=== PATIENT | female | born 1945 ===

== ENCOUNTER 2020-07-25 17:54 | Emergency (ER) | payer OTHER ==
[~2020-07-25] VITALS: Ht 170.2 cm; Wt 81.6 kg
[2020-07-25] MEDS ORDERED: SYNTHROID88 MCG PO (18:06)
[2020-07-25] MEDS ORDERED: NAPROXEN375 MG PO (20:34)
[2020-07-25] MEDS ORDERED: NORFLEX100MG PO (20:34)
== END 2020-07-25 22:34 | disposition home or self-care (01) ==
LOC: ER 17:54
DX: M54.89 Other dorsalgia (principal); M25.512 Pain in left shoulder